=== PATIENT | male | born 1960 | race Caucasian/White ===

== ENCOUNTER 2016-05-10 09:00 | Outpatient (CLI) | payer MEDICAID | END 2016-05-10 09:01 | disposition home or self-care (01) | DX: I10 Essential (primary) hypertension (principal); E78.1 Pure hyperglyceridemia; E11.9 Type 2 diabetes mellitus without complications ==

== ENCOUNTER 2016-12-07 20:44 | Emergency (ER) | payer MEDICAID ==
[2016-12-07 20:55] VITALS: BP 121/76
--- NOTE | 2016-12-07 22:23 | Ultrasound Preliminary Report ---
Exam: US Duplex Ext Veins Left IMPRESSION: No evidence for deep venous thrombosis. [facility] SITE ID: [id number]
--- NOTE | 2016-12-07 22:25 | Ultrasound Report ---
EXAM: LEFT LOWER EXTREMITY VENOUS ULTRASOUND EXAM DATE: 12/07/2016 10:09 PM. CLINICAL HISTORY: Left lower extremity swelling. COMPARISON: None. TECHNIQUE: Real-time sonographic vascular imaging was performed by the value analyst through the lower extremity utilizing both color-flow and Doppler spectral analysis. Multiple patient service representative static matt ges were saved for review. FINDINGS: Common Femoral Vein (CFV): Normal. CFV-GSV Junction: Normal. Profunda Femoral Vein (PFV): Normal. Femoral Vein (FV) Prox: Normal. Femoral Vein (FV) Mid: Normal. Femoral Vein (FV) Dist: Normal. Popliteal Vein: Normal. Posterior Tibial Veins: Normal. Peroneal Veins: Normal. Other: None. IMPRESSION: No evidence for deep venous thrombosis. [facility] Referring Provider Line: [phone] SITE ID: [id number]
--- NOTE | 2016-12-07 22:32 | ED Physician Documentation ---
History of Present Illness - Stated complaint Stated Complaint: LT FOOT PX - Chief complaint Chief Complaint: Ext Problem - History obtained from History obtained from: Patient, Family - History of Present Illness Timing: How many weeks ago (1) Pain level max: 0 Pain level now: 0 Improved by: elevation Worsened by: standing - Treatment prior to arrival Treatment prior to arrival: Patient presents to the emergency department with left foot and ankle swelling for the past week. States that is worse with standing, better with elevation. Resolves after he sleeps. Recurs again the next day. No recent travel. No recent immobilization. Does drink several beers a night. No known injury. No pain. Review of Systems Constitutional: denies: Fever, Chills Throat: denies: Sore throat Cardiac: denies: Chest pain / pressure Respiratory: denies: Dyspnea, Cough, Wheezing GI: denies: Abdominal Pain, Vomiting Skin: denies: Rash Neurologic: denies: Focal weakness, Numbness PD PAST MEDICAL HISTORY - Past Medical History Past Medical History: Yes Cardiovascular: Hypertension, High cholesterol Neuro: None Endocrine/Autoimmune: Type 2 diabetes GI: Pancreatitis Psych: Anxiety - Past Surgical History Past Surgical History: Yes General: Appendectomy - Present Medications Home Medications: Ambulatory Orders Medication Instructions Recorded Confirmed Atorvastatin Calcium [Lipitor] 40 mg PO QPM #30 tablet 04/06/16 Diltiazem HCl [Diltiazem 24Hr Cd] 180 mg PO DAILY #30 cap.er.24h 04/06/16 Fenofibrate Nanocrystallized 145 mg PO DAILY #30 tablet 04/06/16 [Tricor] Pantoprazole [Protonix] 40 mg PO DAILY #30 tablet 04/06/16 - Allergies Allergies/Adverse Reactions: Allergies Allergy/AdvReac Type Severity Reaction Status Date / Time No Known Drug Allergies Allergy Verified 11/19/14 11:32 - Social History Does the pt smoke?: Yes Smoking Status: Former smoker Does the pt drink ETOH?: Yes Does the pt have substance abuse?: No - POLST Patient has POLST: No PD ED PE NORMAL - Vitals Vital signs reviewed: Yes - General General: Alert and oriented X 3, No acute distress - HEENT HEENT: Moist mucous membranes - Cardiac Cardiac: RRR - Respiratory Respiratory: No respiratory distress, Clear bilaterally - Extremities Extremities: Other (1+ bilateral lower extremity edema, slightly increased left greater than right. Mild pitting. Mild posterior calf tenderness on the left leg. Neurovascularly intact. No skin changes No bony tenderness) - Neuro Neuro: Alert and oriented X 3 - Psych Psych: Normal mood, Normal affect Results - Vitals Vitals: Oxygen O2 Source Room air - Rads (name of study) duplex US LLE Radiology: Prelim report reviewed, EMP read contemporaneously, See rad report ( no dvt) PD MEDICAL DECISION MAKING - ED course Complexity details: reviewed results, re-evaluated patient, considered differential, d/w patient, d/w family ED course: Patient is a 56-year-old gentleman who presents to the emergency department with complaints of unilateral edema that resolves when he sleeps at night. He appears to have fairly similar edema bilaterally on physical exam here today, though the left may be slightly creased from the right. Did have some mild calf tenderness on the left, none on the right. Duplex ultrasound reveals no DVT. Likely dependent edema. We will have him follow-up with his doctor for further evaluation and care. If he fails to improve with conservative measures , may need blood work performed by his doctor as well. Patient counseled regarding signs and symptoms for which I believe and urgent re-evaluation would be necessary. Patient with good understanding of and agreement to plan and is comfortable going home at this time This document was made in part using voice recognition software. While efforts are made to proofread this document, sound alike and grammatical errors may occur. Departure - Departure Disposition: 01 Home, Self Care Clinical Impression: Peripheral edema Condition: Good Instructions: ED Leg Swelling Unilateral Follow-Up: Hannah Gutierrez ARNP [Primary Care Provider] - Within 1 week Comments: Elevate your legs at home. Return if you worsen. Follow up with your doctor for further care. Discharge Date/Time: 12/07/16 22:39
== END 2016-12-07 22:39 | disposition home or self-care (01) ==
LOC: ED 20:44
DX: R60.0 Localized edema (principal); I10 Essential (primary) hypertension; E11.8 Type 2 diabetes mellitus with unspecified complications; Z87.891 Personal history of nicotine dependence
CPT/HCPCS: 99283

== ENCOUNTER 2017-01-02 09:44 | Outpatient (CLI) | payer MEDICAID ==
[2017-01-02 13:30] LABS: HEMOGLOBIN A1C 0.75 g/dL
== END 2017-01-02 09:45 | disposition home or self-care (01) ==
LOC: LAB.N 09:44
PROVIDERS: ATTEND Nurse Practitioner Gerontology
DX: E11.9 Type 2 diabetes mellitus without complications (principal)
CPT/HCPCS: 36415; 83036

== ENCOUNTER 2019-05-06 08:30 | Outpatient (CLI) | payer MEDICAID ==
[2019-05-06 13:08] LABS: BASOPHILS % (AUTO) 0.6 %; EOSINOPHILS # (AUTO) 0.2 10^3/uL (0.0-0.7); EOSINOPHILS % (AUTO) 2.7 %; HGB - HEMOGLOBIN 13.5 g/dL (14.0-18.0); LYMPHOCYTES # (AUTO) 2.2 10^3/uL (1.5-3.5); LYMPHOCYTES % (AUTO) 34.5 %; MEAN CORPUSCULAR HEMOGLOBIN 33.2 pg (27.0-31.0); MEAN CORPUSCULAR HGB CONC 34.4 g/dL (32.0-36.0); MEAN CORPUSCULAR VOLUME 96.6 fL (80.0-94.0); MEAN PLATELET VOLUME 11.7 fL (7.4-11.4); MONOCYTES # (AUTO) 0.4 10^3/uL (0.0-1.0); MONOCYTES % (AUTO) 6.8 %; NEUTROPHILS # (AUTO) 3.5 10^3/uL (1.5-6.6); NEUTROPHILS % (AUTO) 55.1 %; PLT - PLATELET COUNT 172 10^3/uL (130-450); RED BLOOD COUNT 4.07 10^6/uL (4.70-6.10); RED CELL DISTRIBUTION WIDTH 11.7 % (12.0-15.0); WHITE BLOOD COUNT 6.3 x10^3/uL (4.8-10.8)
[2019-05-06 13:20] LABS: HB2 TOTAL 13.6 g/dL; HEMOGLOBIN A1C 0.78 g/dL; HEMOGLOBIN A1C % 7.4 % (4.6-6.2)
[2019-05-06 13:24] LABS: ALBUMIN 4.3 g/dL (3.2-5.5); ALBUMIN/GLOBULIN RATIO 1.3 (1.0-2.2); ALKALINE PHOSPHATASE 74 IU/L (42-121); ALT ALANINE AMINOTRANSFERASE 22 IU/L (10-60); AST ASPARTATE AMINOTRANSFERASE 33 IU/L (10-42); BUN - BLOOD UREA NITROGEN 16 mg/dL (6-20); CARBON DIOXIDE - CO2 27 mmol/L (21-32); CHLORIDE 96 mmol/L (101-111); CHOL/HDL RATIO 3.3 (<5.0); CHOLESTEROL 207 mg/dL; CREATININE 0.7 mg/dL (0.6-1.2); GFR - MDRD 117 (>89); GLUCOSE 135 mg/dL (70-100); HDL CHOLESTEROL 63 mg/dL; LDL CHOLESTEROL,CALCULATED 114 mg/dL; LDL/HDL RATIO 1.8 (<3.6); SODIUM 134 mmol/L (135-145); TOTAL PROTEIN 7.6 g/dL (6.7-8.2); VLDL CHOLESTEROL 30 mg/dL
== END 2019-05-06 23:59 | disposition home or self-care (01) ==
LOC: LAB.N 08:30
PROVIDERS: ATTEND Nurse Practitioner Gerontology
DX: I10 Essential (primary) hypertension (principal); E78.1 Pure hyperglyceridemia; E11.9 Type 2 diabetes mellitus without complications
CPT/HCPCS: 36415; 80053; 80061; 83036; 83721; 85025

== ENCOUNTER 2020-12-15 08:02 | Outpatient (CLI) | payer MEDICAID | END 2020-12-15 23:59 | disposition home or self-care (01) | LOC: LAB.N 08:02 | PROVIDERS: ATTEND Family Medicine | DX: R05 Cough (principal); R07.0 Pain in throat; Z20.822 Contact with and (suspected) exposure to COVID-19 | CPT/HCPCS: 87070; 87077 ==

== ENCOUNTER 2023-06-28 08:23 | Outpatient (CLI) | payer MEDICAID ==
[2023-06-28 13:03] LABS: ALBUMIN 4.3 g/dL (3.2-5.5); ALBUMIN/GLOBULIN RATIO 1.3 (1.0-2.2); ALKALINE PHOSPHATASE 125 IU/L (42-121); ALT ALANINE AMINOTRANSFERASE 17 IU/L (10-60); AST ASPARTATE AMINOTRANSFERASE 20 IU/L (10-42); BILIRUBIN,TOTAL 0.9 mg/dL (0.2-1.0); BUN - BLOOD UREA NITROGEN 15 mg/dL (6-20); CALCIUM 9.9 mg/dL (8.5-10.3); CARBON DIOXIDE - CO2 29 mmol/L (21-32); CHLORIDE 102 mmol/L (101-111); CHOL/HDL RATIO 2.7 (<5.0); CHOLESTEROL 193 mg/dL; CREATININE 0.7 mg/dL (0.6-1.3); GAMMA GLUTAMYL TRANSPEPTIDASE 108 IU/L (9-64); GFR - MDRD 115 (>89); GLUCOSE 285 mg/dL (74-104); HDL CHOLESTEROL 71 mg/dL; LDL CHOLESTEROL,CALCULATED 110 mg/dL; LDL/HDL RATIO 1.5 (<3.6); POTASSIUM 4.3 mmol/L (3.5-4.5); SODIUM 137 mmol/L (135-145); TOTAL PROTEIN 7.6 g/dL (6.4-8.9); TRIGLYCERIDES 60 mg/dL (48-352); VLDL CHOLESTEROL 12 mg/dL
[2023-06-28 13:15] LABS: MICROALBUM/CREATININE RATIO,UR 13.6 ug/mg (<30.0); MICROALBUMIN,URINE 1.2 mg/dL
[2023-06-28 14:51] LABS: ESTIMATED AVERAGE GLUCOSE 209 mg/dL (70-100); HEMOGLOBIN A1c% 8.9 % (4.27-6.07)
== END 2023-06-28 08:24 | disposition home or self-care (01) ==
LOC: LAB.N 08:23
PROVIDERS: ATTEND Nurse Practitioner
DX: E11.9 Type 2 diabetes mellitus without complications (principal); E78.1 Pure hyperglyceridemia; Z12.5 Encounter for screening for malignant neoplasm of prostate; E66.01 Morbid (severe) obesity due to excess calories; E78.5 Hyperlipidemia, unspecified; F10.10 Alcohol abuse, uncomplicated
CPT/HCPCS: 36415; 80053; 80061; 82043; 82570; 82977; 83036; 83721; 84153; 84443